=== PATIENT | female | born 1995 | race Caucasian/White ===

== ENCOUNTER 2017-02-08 00:33 | Inpatient (IN) | payer OTHER ==
[~2017-02-08] VITALS: Ht 165.1 cm; Wt 83.0 kg
[2017-02-08] MEDS ORDERED: Lactated Ringer's 1,000 ML IV PRN (01:59)
[2017-02-08] MEDS ORDERED: Oxytocin 10 Unit/mL Inj IM PRN ×2 (02:00→14:35)
[2017-02-08] MEDS ORDERED: Hemorrhage Kit, Post Partum XX ONE ×2 (02:00→14:35)
[2017-02-08] MEDS ORDERED: Oxytocin 30 Units/500 mL LR 30 UNITS in IV Premix 1 EACH IV PRN ×3 (02:00→14:35)
[2017-02-08] MEDS ORDERED: fentaNYL-PF 50 mCg/mL 2 mL Inj IVPUSH PRN (02:00)
[2017-02-08] MEDS ORDERED: Carboprost 250 mCg/mL Inj IM PRN ×2 (02:00→14:35)
[2017-02-08] MEDS ORDERED: Methylergonovine 0.2 mg/mL Inj IM PRN ×2 (02:00→14:35)
[2017-02-08] MEDS ORDERED: Sodium Chloride LOK Flush 10 mL Syringe IVFLUSH PRN (02:00)
[2017-02-08 02:52] LABS: Mean Corpuscular Hemoglobin 29.9 pg (27.0-35.0); Mean Corpuscular Volume 89.4 fL (81-100)
[2017-02-08] MEDS ORDERED: fentaNYL 2 mCg/mL-Bupivicaine 0.125% 100 mL Premix EPIDURAL ONE (05:04)
[2017-02-08] MEDS ORDERED: Lactated Ringer's 500 ML IV ONE (05:19)
--- NOTE | 2017-02-08 05:19 | PCM.HPANE ---
Patient Data Surgeon Admitting Provider:Isael Vogel MD Attending Provider:Isael Vogel MD Primary Care Physician:Isael Vogel MD Other Provider:Renetta Silva Anesthesia Reason for Visit Term Labor Check TERM LABOR CHECK Ht/WT & BMI Body Mass Index Allergies Coded Allergies: No Known Allergies (Unverified , 02/06/17) Diabetes History Hx Diabetes?: No MRSA MRSA: No Medications Hypertension Medication: No History History of ENT Problems?: No Hx of Heart Problems?: No Hx of Respiratory Problem?: No Hx Neurologic Problems?: No Female Hx: Positive for:: Currently Smoking Status: Never Smoker Stop/Bang Treated for Sleep Apnea?: No Do You Have a CPAP Machine?: No S-Snoring: Do You Snore Loudly: No T-Tired: feel tired, fatigued: No O-Obsered: Observed not breath: No P-Blood Pressure: treated: No B- Body Mass Index > 35 kg/m2: No A- Age over 50: No N- Neck Large Circumference: No G- Gender Male: No RAMONA Risk Assessment: Low Risk, <3 Yes Risk Assessment Category Category 1A: Patient has history of documented sleep apnea, and HAS NOT received any narcotic, sedative or anesthesia administration during this stay. Category 1B: Patient has history of documented sleep apnea, and HAS received any narcotic , sedative or anesthesia administration during this stay Category 2: Patient has SUSPECTED Obstructive Sleep Apnea, and HAS received any narcotic , sedative or anesthesia administration during this stay. Category 3: Patient has SUSPECTED Obstructive Sleep Apnea and HAS NOT received narcotic, sedative or anesthesia administration during this stay. Category 4: Outpatient in Procedural Areas with known sleep apnea or who screen positive for High Risk via the STOP/BANG questionnaire. Exam Exam General Appearance: Alert, Oriented X3, Cooperative, No Acute Distress HEENT/AIRWAY: MP 1 Lungs: Clear to Auscultation, Normal Air Movement Heart: Exam Unremarkable, Regular Rate/Rhythm, No Murmurs/Rubs/Gallops Meds/Labs/Diagnostics Labs Test 02/08/17 02:40 White Blood Count 12.3th/mm3 (3.8-10.1) Red Blood Count 3.85mil/mm3 (3.90-5.20) Hemoglobin 11.5g/dL (12.0-15.6) Hematocrit 34.4% (35.0-46.0) Mean Corpuscular Volume 89.4fL (81-100) Mean Corpuscular Hemoglobin 29.9pg (27.0-35.0) Mean Corpuscular Hemoglobin Concent 33.4% (32.0-37.0) Red Cell Distribution Width 13.9% (12.3-15.4) Platelet Count 241bil/L (150-400) Plan Impression Patient chart reviewed, patient interviewed and anesthestic plan with risks, benefits, and alternatives discussed, and informed consent obtained. ASA Physical Status: ASA1 Normal Healthy Anesthetic Plan: Epidural Bene/Risks/Altern/Consents: Yes HP Complete Prior to Induction: Yes Angel Morrison MD Feb 08, 2017 05:19
[2017-02-08] MEDS ORDERED: EPHEDrine Sulfate 50 mg/mL Inj IVPUSH PRN (05:20)
[2017-02-08] MEDS ORDERED: fentaNYL 2 mCg/mL-Bupiv 0.125% 100 ML EPIDURAL SCH (05:20)
[2017-02-08] MEDS ORDERED: Ondansetron 2 mg/mL 2 mL Inj IVPUSH PRN (05:20)
[2017-02-08] MEDS ORDERED: Atropine 1 mg/10 mL (Code) Syringe IVPUSH PRN (05:20)
--- NOTE | 2017-02-08 07:39 | PCM.PNOBIP ---
Subjective Date of Service Feb 08, 2017 Delivery plan: Spontaneous Vaginal Delivery Visit History Called to patient's bedside for prolonged deceleration, kavitha of 60, not responding to repositioning and supplemental oxygen. Total time to return to baseline approximately 7min. Dr. Peña was in the immediate vicinity and placed an FSE. Maternal Date/Time of ROM: 02/08/2017 0422 Pain Management: Epidural, Good Pain Control Labs Laboratory Tests 02/08/17 02:40: White Blood Count 12.3, Red Blood Count 3.85, Hemoglobin 11.5, Hematocrit 34.4, Mean Corpuscular Volume 89.4, Mean Corpuscular Hemoglobin 29.9, Mean Corpuscular Hemoglobin Concent 33.4, Red Cell Distribution Width 13.9, Platelet Count 241 Exam Vital Signs Vital Signs Contraction frequency in minutes: MVUs: Vital Signs: VS reviewed, stable Heart Tracings Heart Tones Baseline 130 bpm Heart Rate Variability: Moderate Heart Rate Accelleration: Present Heart Rate Deceleration: Other (as noted above) Tocometry/IUPC Contraction frequency in minutes: 2-6 Sterile Vaginal Exam Cervical Dilation: 5 cms Cervical Effacement: 90 % Station: -1 Exam General: Alert, Oriented X3, Cooperative, No Acute Distress OB Intrapartum Assessment/Plan Assessment Prolonged heart rate deceleration in active phase labor, now recovered. Problems: (1) 40 weeks gestation of Status: Acute ICD Code: Z3A.40 Intrapartum plan: Continue expected management (with plan for oxytocin augmentation if heart rate remains stable for a brief observation period ( 30-60min)), scalp electrode placed Intrapartum Pain Management: Epidural Pain Evaluation: Adequate Pain Control Isael Vogel MD Feb 08, 2017 07:39
[2017-02-08] MEDS ORDERED: Lactated Ringer's 1,000 ML IV SCH ×2 (07:51→14:34)
[2017-02-08] MEDS: Lactated Ringer's 1,000 ML IV SCH (08:20)
[2017-02-08] MEDS ORDERED: Sodium Chloride LOK Flush 10 mL Syringe IVFLUSH SCH (08:30)
--- NOTE | 2017-02-08 12:05 | PCM.PNOBIP ---
Subjective Date of Service Feb 08, 2017 Delivery plan: Spontaneous Vaginal Delivery Visit History In for 4min deceleration, kavitha at 90bpm. Responded to repositioning but was followed by 3 consecutive late decelerations in the 90-100 range. Pitocin was turned off (had been at 4 mU/min). Maternal Date/Time of ROM: 02/08/2017 0422 Pain Management: Epidural, Good Pain Control Labs Laboratory Tests 02/08/17 02:40: White Blood Count 12.3, Red Blood Count 3.85, Hemoglobin 11.5, Hematocrit 34.4, Mean Corpuscular Volume 89.4, Mean Corpuscular Hemoglobin 29.9, Mean Corpuscular Hemoglobin Concent 33.4, Red Cell Distribution Width 13.9, Platelet Count 241 Exam Vital Signs Vital Signs Contraction frequency in minutes: MVUs: Vital Signs: VS reviewed, stable Heart Tracings Heart Tones Baseline 130 bpm Heart Rate Variability: Moderate Heart Rate Accelleration: Present Heart Rate Deceleration: Other (mild variable and early decelerations. Now resolved late decelerations.) Tocometry/IUPC Contraction frequency in minutes: 2-4 Sterile Vaginal Exam Cervical Dilation: 9 cms Cervical Effacement: 100 % Station: 0 Exam General: Alert, Oriented X3, Cooperative, No Acute Distress OB Intrapartum Assessment/Plan Assessment Prolonged deceleration and repeat late decelerations, resolved with resuscitative measures. Currently with reassuring monitoring. Problems: (1) 40 weeks gestation of Status: Acute ICD Code: Z3A.40 Intrapartum plan: Continue expected management (Pitocin to remain off. Discussed potential need for operative delivery if late decelerations persist/ recur.) Intrapartum Pain Management: Epidural Pain Evaluation: Adequate Pain Control Isael Vogel MD Feb 08, 2017 12:05
--- NOTE | 2017-02-08 14:06 | PCM.ANEP1 ---
Post Anesthesia Phase 1 PACU Phase 1 Assessment Anesthetic Administered: Epidural Level of Alertness: Awake, talking SANTOS's with Equal Strength: No (C/W sensorimotor block) Pain: No Pain Scale Score: 3 Nausea or Vomiting: No Oxygen Delivery: Room Air Dermatome Level: T8 (Costal Margin) Gareth oL DO Feb 08, 2017 14:06
--- NOTE | 2017-02-08 14:20 | PCM.ANEP2 ---
Post Anesthesia Evaluation ASA/CMS Post Anesthesia VS in Patient's Normal Range?: Yes Resp Stable; Airway Patent?: Yes CV Function & Hydration Stable: Yes Mental Status Recovered?: Yes Pain control Satisfactory?: Yes N/V Control Satisfactory?: Yes Gareth Lo DO Feb 08, 2017 14:20
[2017-02-08] MEDS ORDERED: LANOlin HPA 7 Gm Ointment TOPICAL PRN (14:35)
[2017-02-08] MEDS ORDERED: HYDROcodone-APAP 5-325 mg Tablet PO PRN (14:35)
--- NOTE | 2017-02-08 14:47 | PCM.OBVAG ---
Vaginal Delivery Date of Service Feb 08, 2017 Pre Operative Diagnosis Pre Operative Diagnosis Term gestation, labor Post Operative Diagnosis Post Operative Diagnosis Term gestation, delivered Procedure Procedure: Spontaneous vaginal delivery Obstetical Procedure: Normal Spontaneous Vaginal Delivery, Other (Repair of right superior labial laceration (3-O Vicryl in running fashion).) Administrative Sales Assistant/Transportation Supervisor Provider and Transportation Supervisor: Isael Vogel MD Indication for Procedure Induction: Active labor, Pitocin augmentation, SROM, Progressed normally through labor, Other (repetitive decelerations through Stage 2) Findings Obstetrical Findings: (Female), Weight (7 lbs 8 oz), Presentation (Vertex), 1 minute (8), 5 minutes (9), Placenta (Intact /Normal), Perineal Laceration (Right superior labial laceration) Analgesia/Medications Obstetrical Anesthesia: Epidural Procedure Details Procedure Details Patient admitted at 40 1/7 weeks EGA, in active phase labor. Progression as noted above. There were 2 separate prolonged decelerations that were relieved with routine resuscitative/positioning measures. There were recurrent decelerations to the 90-120 range with pushing, slowly recovering to the 150s and 160s between pushes. Pediatrics was in attendance for delivery. was vigorous at the perineum and was transferred to mother's chest. Delayed cord clamping was observed. A true not x 1 was noted in the cord. Specimen Specimens: Cord segment Blood Loss & Administration Estimated Blood Loss: 300 Post Procedure Plan Post delivery Condition: Mom stable, Baby stable to nursery Isael Vogel MD Feb 08, 2017 14:47
[2017-02-08] MEDS: Witch Hazel-Glycerin Pads TOPICAL PRN (15:36)
[2017-02-09] MEDS: Lactated Ringer's 1,000 ML IV SCH (05:19)
[2017-02-09 06:17] LABS: Mean Corpuscular Hemoglobin 30.2 pg (27.0-35.0); Mean Corpuscular Volume 92.4 fL (81-100)
[2017-02-09] MEDS: Witch Hazel-Glycerin Pads TOPICAL PRN (17:01)
--- NOTE | 2017-02-09 18:17 | PCM.PNOBPP ---
Subjective Date of Service Feb 09, 2017 Post : Spontaneous Vaginal Delivery Visit History PPD#1 Subjective Feeling well. No complaints. Lochia: Normal Pain Management: No or Minimal Pain Gastrointestinal: Good Appetite Postop Activity: Ambulating Independently Labs Laboratory Tests 02/09/17 05:40: White Blood Count 10.0, Red Blood Count 3.41, Hemoglobin 10.3, Hematocrit 31.5, Mean Corpuscular Volume 92.4, Mean Corpuscular Hemoglobin 30.2, Mean Corpuscular Hemoglobin Concent 32.7, Red Cell Distribution Width 14.2, Platelet Count 194 Exam Vital Signs Vital Signs: VS reviewed, stable Exam Abdomen: Uterus is (U-1), Fundus firm, Abdomen soft, Abdomen non-tender Perineum: Laceration : Voiding without difficulty Extremities: No cords, No tenderness/swelling Lungs: Clear to Auscultation, Normal Air Movement Heart: Normal S1, Normal S2, No Murmurs/Rubs/Gallops General: Alert, Oriented X3, Cooperative, No Acute Distress OB Post Assessment/Plan Assessment PPD#1 -- doing well Problems: (1) 40 weeks gestation of Status: Acute ICD Code: Z3A.40 (2) normal course Status: Acute ICD Code: Z39.2 (3) Spontaneous vaginal delivery Status: Acute ICD Code: O80 Pain Evaluation: Adequate Pain Control Post plan: Anticipate discharge home today Isael Vogel MD Feb 09, 2017 18:17
--- NOTE | 2017-02-09 18:25 | PCM.DC.OB ---
Obstetrical Discharge Summary Date of Service Feb 09, 2017 Date of hospital admission Feb 08, 2017 at 02:00 Date of Discharge: Feb 09, 2017 Providers Admitting Physician: Isael Vogel MD Primary Care Physician: Isael Vogel MD Attending Physician: Isael Vogel MD Problems: (1) 40 weeks gestation of Status: Acute ICD Code: Z3A.40 (2) normal course Status: Acute ICD Code: Z39.2 (3) Spontaneous vaginal delivery Status: Acute ICD Code: O80 Brief History and Physical: 21yo admitted at 40 1/7 weeks EGA in active phase labor. Hospital Course: Patient was admitted and initially observed through labor. She received an epidural for analgesia and experienced good pain control with this. Her contraction pattern decreased in frequency, leading to augmentation with oxytocin. She initially did well with this, but oxytocin was discontinued after a prolonged heart rate deceleration. There were noted recurrent decelerations as the patient entered 2nd stage of labor. heart rate regularly dipped to the 100s-110s, occasionally to the 90s, with recovery to the 150s-160s. She ultimately delivered via spontaneous vaginal delivery. Pediatrics was in attendance for the delivery. However, the infant was vigorous at and was transferred to the maternal chest. There was a true knot noted in the umbilical cord, presumed to be the etiology of the repetitive decelerations. Placenta delivered spontaneously and intact. There was a right superior labial laceration that was repaired with 3-O Vicryl. EBL was 300cc. Patient had an uncomplicated course. Disposition Home Follow-up plan 6 weeks Discharge Diet: No restrictions Discharge Activity-General: Pelvic Rest for 6 weeks Isael Vogel MD Feb 09, 2017 18:25
--- NOTE | 2017-02-09 18:27 | PCM.DIOB ---
Obstetrical Disch Instruction Date of Service: Feb 09, 2017 Dates of Hospitalization Date of Hospital Admission Feb 08, 2017 at 02:00 Providers Admitting Physician: Isael Vogel MD Primary Care Physician: Isael Vogel MD Attending Physician: Isael Vogel MD Discharge Diagnosis Problems: (1) 40 weeks gestation of Status: Resolved ICD Code: Z3A.40 (2) normal course Status: Resolved ICD Code: Z39.2 (3) Spontaneous vaginal delivery Status: Resolved ICD Code: O80 Diet Discharge Diet: No restrictions Activity Discharge Activity-General: Pelvic Rest for 6 weeks Dressing and Incisional Care Hygiene: May shower Follow Up Plan Follow-up Provider (F9): Isael Vogel MD Follow-up appointment: Weeks (6) Call your provider for: Fever or Chills, Shortness of breath, Heavy vaginal bleeding, Epigastric pain, Excessive constipation, Vaginal discomfort, Red painful breasts Isael Vogel MD Feb 09, 2017 18:27
[2017-02-09 18:44] VITALS: BP 118/66; PULSE 80; RESP 18
== END 2017-02-09 19:40 | disposition home or self-care (01) | DRG 775 ==
LOC: FBCO 00:33 → FBC 02:00
PROVIDERS: ADMIT Family Medicine; ATTEND Family Medicine
PROC: 10E0XZZ Delivery of Products of Conception, External Approach (ICD-10-PCS; principal; 2017-02-08)
PROC: 0UQMXZZ Repair Vulva, External Approach (ICD-10-PCS; 2017-02-08)
DX: O71.82 Other specified trauma to perineum and vulva (principal); O76 Abnormality in fetal heart rate and rhythm complicating labor and delivery; Z3A.40 40 weeks gestation of pregnancy; Z37.0 Single live birth; O69.2XX0 Labor and delivery complicated by other cord entanglement, with compression, not applicable or unspecified